=== PATIENT | male | born 1970 | race Two or more races ===

== ENCOUNTER 2023-04-30 20:37 | Emergency (ER) | payer OTHER ==
[~2023-04-30] VITALS: Ht 167.6 cm; Wt 81.6 kg
[2023-04-30] MEDS ORDERED: TDAP [DIPH/PERTUSSIS/TET] 0.5 ML VIAL IM ONE ×2 (21:00→21:14)
[2023-04-30 23:03] VITALS: BP 143/113; TEMP 98.1; O2SAT 98
== END 2023-04-30 23:03 ==
LOC: ER 20:44
DX: S01.112A Laceration without foreign body of left eyelid and periocular area, initial encounter (principal); R51.9 Headache, unspecified; Z60.2 Problems related to living alone; Y04.0XXA Assault by unarmed brawl or fight, initial encounter; Y93.89 Activity, other specified; Y92.89 Other specified places as the place of occurrence of the external cause; Y99.8 Other external cause status
CPT/HCPCS: 70486-TC; 90715